=== PATIENT | male | born 1975 | race Caucasian/White ===

== ENCOUNTER 2016-10-11 13:37 | Emergency (ER) | payer MEDICAID ==
[2016-10-11 13:43] VITALS: BP 122/81; PULSE 70; TEMP 97.6
[2016-10-11 13:44] VITALS: BMI 30.2
--- NOTE | 2016-10-11 14:16 | DIRPT ---
CLINICAL DATA: Pain after trauma EXAM: LEFT FINGER(S) - 2+ VIEW COMPARISON: None. FINDINGS: There is a comminuted nondisplaced fracture of the distal phalanx of the left thumb, extending into the interphalangeal joint. No dislocation or other acute abnormality identified. IMPRESSION: Fracture of the distal left thumb as described above. Electronically Signed By: Justice Hall III, M.D On: 10/11/2016 14:13
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
== END 2016-10-11 14:45 | disposition home or self-care (01) ==
LOC: EDMC 13:37
DX: S62.525A Nondisplaced fracture of distal phalanx of left thumb, initial encounter for closed fracture (principal); W22.8XXA Striking against or struck by other objects, initial encounter; Y93.67 Activity, basketball
CPT/HCPCS: 29130; 99282